=== PATIENT | female | born 1980 | race Caucasian/White ===

== ENCOUNTER 2017-06-28 13:15 | Emergency (ER) | payer OTHER ==
[~2017-06-28] VITALS: Ht 170.2 cm; Wt 64.1 kg
[~2017-06-28 13:15] MED LIST: ENDOCET 5-3251 EACH PO; Motrin PO
[2017-06-28 13:50] LABS: HEMATOCRIT 43.4 % (36.0-46.0); HEMOGLOBIN 14.6 G/DL (11.9-15.5); MCH 30.1 PG (29.0-34.0); MCHC 33.6 G/DL (30.0-36.0); MCV 89.5 FL (83-99); PLATELET COUNT 248 K/uL (156-360); RBC DIS.WIDTH-CV 12.9 % (11.8-14.6); RED BLOOD COUNT 4.85 M/uL (3.80-5.20); WHITE BLOOD COUNT 12.2 K/uL (4.1-10.2)
[2017-06-28 14:01] LABS: ALBUMIN 4.2 g/dL (3.2-4.8); CHLORIDE 106 mEq/L (99-109); POTASSIUM 4.6 mEq/L (3.7-5.4); SODIUM 141 mEq/L (136-147)
[2017-06-28 14:03] LABS: GLUCOSE 100 mg/dL (70-99)
[2017-06-28 14:04] LABS: TOTAL PROTEIN 7.1 g/dL (6.4-8.3)
[2017-06-28 14:05] LABS: TOTAL BILIRUBIN 1.7 mg/dL (0.0-1.0)
[2017-06-28 14:07] LABS: ALKALINE PHOSPHATASE 74 IU/L (3-129); CREATININE 0.8 mg/dL (0.6-1.3); GFR ESTIMATE (CALCULATED) > 59 mL/min/
[2017-06-28 14:08] LABS: UREA NITROGEN (BUN) 7 mg/dL (9-23)
[2017-06-28 14:09] LABS: AST (GOT) 19 IU/L (2-34)
[2017-06-28 14:10] LABS: ALT (GPT) 15 IU/L (3-49)
[2017-06-28 14:17] LABS: QUANTITATIVE HCG < 4.0 MIU/ML
[2017-06-28 15:08] LABS: APPEARANCE SL.HAZY ((CLEAR)); BILIRUBIN NEGATIVE; BLOOD NEGATIVE; COLOR YELLOW ((YELLOW)); GLUCOSE (STRIP) NEGATIVE; KETONES NEGATIVE; LEUKOCYTES SMALL; NITRITE NEGATIVE; PROTEIN (STRIP) 30; SPECIFIC GRAVITY 1.026 (1.000-1.030); UROBILINOGEN 0.2 MG/DL (0.2-1.0)
[2017-06-28 15:19] LABS: BACTERIA RARE /HPF; EPITHELIAL CELLS 1+ /HPF; MUCUS 1+ /LPF; UCUL ADDED? YES; WHITE BLOOD CELLS 15-20 /HPF (0-5)
[2017-06-28] MEDS ORDERED: BENTYL10 MG PO (15:48)
[2017-06-28] MEDS ORDERED: CIPRO500 MG PO (15:48)
[2017-06-28] MEDS ORDERED: ZOFRAN4 MG PO (15:48)
[2017-06-28 16:13] VITALS: BP 120/46
== END 2017-06-28 16:16 | disposition home or self-care (01) ==
LOC: EME 13:15
DX: N39.0 Urinary tract infection, site not specified (principal); K58.0 Irritable bowel syndrome with diarrhea; Z88.5 Allergy status to narcotic agent
CPT/HCPCS: 80053; 81003; 84702; 85027; 87077; 87086; 87186; 99281; 99284